=== PATIENT | female | born 1975 | race Two or more races ===

== ENCOUNTER 2017-03-17 08:40 | Emergency (ER) | payer MEDICAID, OTHER ==
[~2017-03-17] VITALS: Ht 154.9 cm; Wt 63.5 kg
[2017-03-17 11:44] VITALS: BP 126/69
== END 2017-03-17 11:45 | disposition home or self-care (01) ==
LOC: ER 08:40
DX: S16.1XXA Strain of muscle, fascia and tendon at neck level, initial encounter (principal); M54.5 Low back pain; V49.49XA Driver injured in collision with other motor vehicles in traffic accident, initial encounter; Y93.89 Activity, other specified; Y99.8 Other external cause status; Y92.410 Unspecified street and highway as the place of occurrence of the external cause
CPT/HCPCS: 70450; 72100; 72125

== ENCOUNTER → 2021-07-12 | Emergency (ER) | payer MEDICAID ==
[~2021-07-12] VITALS: Ht 157.5 cm; Wt 67.1 kg
[~2021-07-12] MED LIST: KETOROLAC TROMETH 60MG/2ML VIAL IM ONE
[2021-07-12 20:18] VITALS: BP 136/72
== END | disposition home or self-care (01) ==
LOC: ER 17:16
DX: R51.9 Headache, unspecified (principal); R09.81 Nasal congestion
CPT/HCPCS: 70450; 96372; 99284; J1885